=== PATIENT | female | born 1995 | race Caucasian/White ===

== ENCOUNTER → 2020-10-09 | Outpatient (CLI) | payer OTHER ==
[~2020-10-09] MED LIST: IBUPROFEN600 MG PO; KEFLEX CAP 500500 MG PO; PERCOCET 5/325 T1 EA PO; [UNRECOGNIZED DRUG - OTHER] PO
== END ==
LOC: KOH-I 12:26
DX: M54.2 Cervicalgia (principal)
CPT/HCPCS: 72040